=== PATIENT | male | born 1960 | race Caucasian/White ===

== ENCOUNTER 2019-03-21 20:08 | Emergency (ER) | payer BC ==
--- NOTE | 2019-03-21 20:31 | EDM.PDOC ---
ED HPI GENERAL MEDICAL PROBLEM - General Chief Complaint: Lower Extremity Injury/Pain Stated Complaint: [facility] Time Seen by Provider: 03/21/19 20:09 Source of Information: Reports: Patient, EMS Notes Reviewed, RN Notes Reviewed History Limitations: Reports: No Limitations - History of Present Illness INITIAL COMMENTS - FREE TEXT/NARRATIVE: Patient is a 58-year-old male who presents to the ED via [facility] for the evaluation of a right ankle injury. The patient notes that shortly after supper tonight, he walked outside to his car, slipped on the ice, this resulted in a injury to his right ankle. He states that it was too painful to step on, so he called the ambulance to come get him. There is a very small abrasion to the medial aspect of his right ankle otherwise no open laceration is noted. There is mild amount of swelling to the medial aspect as well, no obvious deformity noted. The patient did receive a total of 100 mcg of fentanyl in the ambulance while being transferred here. Patient notes he does have a primary care provider, is out of [place], he notes only a past medical history of gout, otherwise he states he is a fairly healthy gentleman. He did not his head, and he had no LOC. The patient notes that he has had a sprained ankle to this extremity in the past, but no fractures that he was aware of. Right Ankle Pain Score (Numeric/FACES): 5 - Related Data Allergies Allergy/AdvReac Type Severity Reaction Status Date / Time No Known Allergies Allergy Verified 03/21/19 20:12 Home Meds: Home Meds Allopurinol [Zyloprim] 200 mg PO DAILY 03/21/19 [History] Past Medical History Musculoskeletal History: Reports: Gout Social & Family History - Tobacco Use Smoking Status *Q: Never Smoker - Caffeine Use Caffeine Use: Reports: Coffee - Recreational Drug Use Recreational Drug Use: No Review of Systems - Review of Systems Review Of Systems: Comprehensive ROS is negative, except as noted in HPI. Musculoskeletal: Reports: Joint Pain (Right ankle pain) Skin: Denies: Bruising Neurological: Denies: Numbness, Syncope, Tingling ED EXAM, GENERAL - Physical Exam Exam: See Below Exam Limited By: No Limitations General Appearance: Alert, WD/WN, No Apparent Distress Respiratory/Chest: No Respiratory Distress, Lungs Clear, Normal Breath Sounds, No Accessory Muscle Use, Chest Non-Tender Peripheral Pulses: 3+: Dorsalis Pedis (L), Dorsalis Pedis (R) Extremities: Normal Capillary Refill, Joint Swelling (mild amount of swelling to R ankle), Limited Range of Motion (of right ankle d/t pain). No: Leg Pain, Mottled, Pallor Neurological: Alert, Oriented, Normal Cognition, No Motor/Sensory Deficits Psychiatric: Normal Affect, Normal Mood Skin Exam: Warm, Dry, Intact, Normal Color, No Rash, Wound/Incision (small skin abrasion to R medial malleolus) Course - Vital Signs Last Recorded V/S: Last Vital Signs Temp 96.8 F 03/21/19 20:09 Pulse 63 03/21/19 20:09 Resp 18 03/21/19 20:09 BP 113/71 03/21/19 20:09 Pulse Ox 99 03/21/19 20:16 - Orders/Labs/Meds Orders: Active Orders 24 hr Category Date Time Status Ankle Min 3V Rt [CR] Stat Exams 03/21/19 20:15 Ordered DME for Discharge [COMM] Routine Oth 03/21/19 21:00 Ordered Meds: Medications Discontinued Medications Generic Name Dose Route Start Last Admin Trade Name Freq PRN Reason Stop Dose Admin Hydromorphone HCl 0.5 mg 03/21/19 20:47 03/21/19 21:06 Dilaudid IM 03/21/19 20:48 0.5 mg ONETIME ONE Administration - Re-Assessments/Exams Free Text/Narrative Re-Assessment/Exam: 03/21/19 20:34 Patient presents to the ED for the evaluation of a right ankle injury. He did receive 100 mics of fentanyl in route to the hospital, so we will hold off on pain meds at this time. Did order ankle x-ray for further evaluation. 03/21/19 20:40 Patient's x-rays are done, and there are 2 chip fractures off of the posterior malleolus of the right ankle joint, and also appears to be some increased mortise spacing medially to the right ankle joint as well. These were reviewed by myself and Dr. Haile, however I will have V rad perform official radiology read at this time, to see if they agree with the mortise spacing. Will likely keep the patient nonweightbearing with crutches, and give him some pain meds and have him follow-up with orthopedics of choice. 03/21/19 21:16 V-rad shows no acute fractures. The 2 bone chips are being call chronic fractures. 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 No associated acute fractures or talar dome injuries are identified. Consider follow-up orthopedic consultation. Cross-sectional imaging of the ankle may be helpful in characterization. 3 mm ossification of the medial gutter distributions suspicious for a small ossific body. And a small ankle joint effusion. This read will not change my plan, I will have him be non-weightbearing until cleared by orthopedics. Departure - Departure Time of Disposition: 20:44 Disposition: Home, Self-Care 01 Condition: Good Clinical Impression: Effusion of ankle joint, right Fracture of malleolus of right ankle Qualifiers: Encounter type: initial encounter Fracture type: closed Qualified Code(s): S82.891A - Other fracture of right lower leg, initial encounter for closed fracture - Discharge Information *PRESCRIPTION DRUG MONITORING PROGRAM REVIEWED*: No *COPY OF PRESCRIPTION DRUG MONITORING REPORT IN PATIENT PRABHAKAR: No Instructions: Crutch Use, Adult, [id number], Ankle Fracture, Walking Boot, Adult Referrals: PCP,Unknown [Ordering Only Provider] - Forms: ED Department Discharge Additional Instructions: You have been evaluated in the ED for your right ankle injury. Your x-ray demonstrated 2 small chip fractures of the posterior malleolus of your right tibia. Please use ice as tolerated to the affected area. You were given a walking boot for splinting purposes of this fracture and crutches for ambulation. You will need to be nonweightbearing on the right leg, until told otherwise by orthopedics, use the crutches for walking around, and although the walking boot says walking, you are not to bear weight on the right leg. You may take Tylenol 500 mg or ibuprofen 600mg q6 hrs for pain relief. Please do so until you have a tolerable level of pain with activity. Do not exceed 4000mg Tylenol, Do not exceed 3200mg ibuprofen in a 24 hour time period. You were given a prescription for a strong pain medication, hydrocodone/ acetaminophen 5/325, please take 1 tab every 6 hours as needed for pain not relieved by Tylenol or ibuprofen alone. Please note this does contain Tylenol in it, so do not take more than 4000 mg in a 24-hour time span. These medications can be addictive, so please take as few as possible to achieve adequate pain control. These meds can also be quite constipating, recommend that you increase your oral fluid intake and take a stool softener like MiraLAX while taking these medications. Your last dose of narcotic pain medication was given around 9PM, this med should last around 4 hours, please try time your hydrocodone accordingly, recommend that you wait until 1 or 2am to take this med if needed. Please call Ortho for follow-up and further evaluation Dr. Ballesteros is our orthopedic surgeon, his office number is [phone]. Please call and set up an appointment as soon as possible for further management. Please return to ED if your symptoms should change or worsen. - My Orders Last 24 Hours: My Active Orders 03/21/19 20:15 Ankle Min 3V Rt [CR] Stat 03/21/19 21:00 DME for Discharge [COMM] Routine - Assessment/Plan Last 24 Hours: My Active Orders 03/21/19 20:15 Ankle Min 3V Rt [CR] Stat 03/21/19 21:00 DME for Discharge [COMM] Routine
[2019-03-21] MEDS ORDERED: HYDROmorphone 0.5 MG/0.5 ML Syringe IM ONE (20:47)
--- NOTE | 2019-03-23 10:38 | CR ---
Right ankle: Four views of the right ankle were obtained. Comparison: Calcification is seen off the posterior malleolus compatible with old injury. There is slight asymmetry of the ankle mortise suspicious for ligamentous instability. Small calcification is noted between the talus and medial malleolus compatible with old injury. No acute bony abnormality is appreciated. Impression: 1. Probable ligamentous instability. 2. Old injury as noted above. 3. No acute bony abnormality is appreciated. Diagnostic code #3 This report was dictated in [place] Standard Time I agree with preliminary report from [facility], finalized on 03/21/19, 10:11 PM Central Time
== END 2019-03-21 21:52 | disposition home or self-care (01) ==
LOC: JD.ED 20:08
DX: S82.891A Other fracture of right lower leg, initial encounter for closed fracture (principal); Z87.828 Personal history of other (healed) physical injury and trauma; W00.0XXA Fall on same level due to ice and snow, initial encounter; Y92.89 Other specified places as the place of occurrence of the external cause
CPT/HCPCS: 73610; 96372; 99284; J1170